=== PATIENT | female | born 1960 | race Caucasian/White ===

== ENCOUNTER 2017-08-22 12:28 | Outpatient (CLI) | payer OTHER ==
--- OUTSIDE RECORDS SUMMARY | 2017-08-27 06:23 | XMS | Clinical Summary ---
:1960 Author Organization [facility] Address [address] [place] [address] Phone Care Team Providers Name Role Phone , Primary Care Provider Unavailable Allergies Not on File Current Medications Not on file Active Problems Not on file Social History Tobacco Use Types Packs/Day Years Used Date Never Assessed Sex Assigned at Date Recorded Not on file Last Filed Vital Signs Not on file Plan of Treatment Not on file Results Not on filefrom Last 3 Months
== END 2017-08-22 12:29 | disposition home or self-care (01) ==
LOC: LABBT 12:28
PROVIDERS: ATTEND Family Medicine
DX: Z01.818 Encounter for other preprocedural examination (principal); E66.09 Other obesity due to excess calories

== ENCOUNTER 2017-08-22 13:00 | Inpatient (IN) | payer OTHER ==
[2017-08-28] MEDS ORDERED: Bupivacaine 0.25% HCL 30 ML VIAL ONE ×2 (06:41→06:47)
[2017-08-28] MEDS ORDERED: Sodium Chloride 0.9% 100 ML ONE (06:57)
[2017-08-28] MEDS ORDERED: Scopolamine 1.5 mg/72 hour Patch ONE (06:57)
[2017-08-28] MEDS ORDERED: Ketorolac Tromethamine 30 MG/ML VIAL ONE (06:57)
[2017-08-28] MEDS ORDERED: Heparin 5,000 UNITS/ML VIAL ONE (06:57)
[2017-08-28] MEDS ORDERED: Fentanyl 250 MCG/5 ML VIAL ONE (07:03)
[2017-08-28] MEDS ORDERED: Lidocaine 2% w/Epinephrine 1:200K 20 ML VIAL ONE (07:37)
[2017-08-28] MEDS ORDERED: Glycopyrrolate 0.2 MG/ML 5 ML SYRINGE ONE (07:37)
[2017-08-28] MEDS ORDERED: Ondansetron HCl/PF 4 MG/2 ML Vial ONE (07:37)
[2017-08-28] MEDS ORDERED: Lidocaine 1% PF 5 ML VIAL ONE (07:37)
[2017-08-28] MEDS ORDERED: Propofol 200 MG/20 ML VIAL ONE (07:37)
[2017-08-28] MEDS ORDERED: HYDROmorphone 2 MG/ML VIAL SLOW IVP PRN (09:56)
[2017-08-28] MEDS ORDERED: Promethazine HCl 25 MG/ML VIAL SLOW IVP PRN (09:56)
[2017-08-28] MEDS ORDERED: Promethazine HCl 25 MG/ML VIAL IM PRN ×2 (09:56→11:44)
[2017-08-28] MEDS ORDERED: Ondansetron HCl/PF 4 MG/2 ML Vial IVP PRN ×2 (09:56→11:44)
[2017-08-28] MEDS ORDERED: Fentanyl 100 MCG/2 ML VIAL ONE ×3 (09:57→10:35)
[2017-08-28] MEDS ORDERED: Promethazine HCl 25 MG/ML VIAL ONE (10:09)
[2017-08-28] MEDS ORDERED: Dextrose 50% Abboject 50 ML SYRINGE SLOW IVP PRN (11:44)
[2017-08-28] MEDS ORDERED: Insulin Regular 300 UNITS/3 ML VIAL SC PRN (11:44)
[2017-08-28] MEDS ORDERED: hydrALAZINE 20 MG/ML VIAL SLOW IVP PRN (11:44)
[2017-08-28] MEDS ORDERED: diphenhydrAMINE 50 MG/ML VIAL IVP PRN (11:44)
[2017-08-28] MEDS ORDERED: Hydrocodone-Acetamin 15 ML UDCUP PO PRN (11:44)
[2017-08-28] MEDS ORDERED: Dextrose 5% in Water 1,000 ML IV PRN (11:44)
[2017-08-28] MEDS ORDERED: Morphine 2 MG/ML SYRINGE SLOW IVP PRN (11:44)
[2017-08-28] MEDS: 1/2 NS w/KCL 20 mEq 1,000 ML IV SCH ×2 (13:22→20:25)
[2017-08-28] MEDS: Ketorolac Tromethamine 30 MG/ML VIAL IVP SCH ×3 (13:23→23:34)
[2017-08-28] MEDS: Meperidine HCl/PF 25 MG/ML VIAL SLOW IVP PRN ×3 (14:06→21:02)
--- OUTSIDE RECORDS SUMMARY | 2017-08-29 00:30 | XMS | Clinical Summary ---
:1960 Author Organization [facility] Address [address] [place] [address] Phone Care Team Providers Name Role Phone [...]
[2017-08-29] MEDS: Meperidine HCl/PF 25 MG/ML VIAL SLOW IVP PRN (04:30)
[2017-08-29] MEDS: 1/2 NS w/KCL 20 mEq 1,000 ML IV SCH ×2 (04:36→13:23)
[2017-08-29 05:42] LABS: #Lymphocytes 2.4 thou/uL (1.20-3.40); #Monocytes 1.1 thou/uL (0.11-0.59); #Neutrophils 6.4 thou/uL (1.40-6.50); %Basophils 0.5 % (0.0-1.0); %Eosinophils 0.2 % (0.0-10.0); %Monocytes 10.7 % (0.0-10.0); Hematocrit 38.6 % (36.0-47.0); Mean Platelet Volume 8.4 fL (7.4-10.4); Red Blood Cell (RBC) Count 4.34 mill/uL (4.20-5.40); White Blood Cell (WBC) Count 9.9 thou/uL (4.8-10.8)
[2017-08-29 05:47] LABS: Anion Gap 12 mmol/L (10-20); BUN (Urea Nitrogen) 7 mg/dL (9.8-20.1); Calc. Creatinine Clearance 146 mL/min (70-130); Calcium 8.1 mg/dL (7.8-10.44); Carbon Dioxide 23 mmol/L (22-29); Chloride 106 mmol/L (98-107); Estimated GFR-MDRD Greater than 90
[2017-08-29] MEDS: Ketorolac Tromethamine 30 MG/ML VIAL IVP SCH ×2 (06:22→13:24)
[2017-08-29] MEDS ORDERED: Pantoprazole 40 MG VIAL IVP SCH (09:00)
--- NOTE | 2017-08-29 10:15 | RAD ---
LIMITED UPPER GI WITH 15 ML GASTROGRAFIN: Date: 08/29/17 HISTORY: Recent gastric bypass surgery. FINDINGS: There is prompt passage of contrast to the esophagus and into the small bowel loops. No contrast ext ravasation is seen. IMPRESSION: No evidence of obstruction or leak. POS: [facility]
[2017-08-29 15:03] VITALS: BMI 34.0
[2017-08-29 15:12] VITALS: BP 148/79; TEMP 98.9
--- NOTE | 2017-08-29 17:30 | OP ---
DATE OF PROCEDURE: 08/28/2017 PREOPERATIVE DIAGNOSIS: Morbid obesity with multiple comorbidities. POSTOPERATIVE DIAGNOSIS: Morbid obesity with multiple comorbidities. OPERATION PERFORMED: Laparoscopic Viet-en-Y gastric bypass. SURGEON: Kush Inman M.D. ANESTHESIA: General endotracheal. INDICATIONS: The patient is a 56-year-old morbidly obese white female. She has undergone preoperat monica evaluation and education and presents at this time for laparoscopic gastric bypass. DESCRIPTION OF THE PROCEDURE: Informed consent was obtained. The patient was taken to the operatin g room where general endotracheal anesthesia was obtained with the patient in supine position. Abdo men was prepped with ChloraPrep and draped in sterile fashion. Local anesthetic was infiltrated and a 5 mm supraumbilical incision was created through which a Veress needle was passed into the perito maria alejandra cavity. Pneumoperitoneum was established using carbon dioxide up to a pressure of 15 mmHg. A 5 mm trocar port was passed through this same incision. Laparoscopic camera was passed through this port. Under direct vision, 4 additional ports were placed including bilateral subcostal 5 mm ports , 15 mm left paramedian port and a 12 mm right paramedian port. Later in the case, made a 5 mm epig astric incision through which I placed a Nathansen retractor to retract the left lobe of the liver. The omentum was reflected superiorly. There were no adhesions. This was split in the midline up to the transverse colon using LigaSure device. The ligament of Treitz was identified and traced 50 cm distally at which point it was transected with a single firing of the white load of the [place] sta pler. The distal segment of bowel was devascularized for 5 cm. I traced the small bowel 100 cm dis tally and at that point, created an anastomosis between the stapled end of the biliary limb and the Viet limb using a single fire of the white load of the [place] stapler. The enterotomy was closed w ith another firing of the white load of the [place] stapler. The mesenteric defect was closed using 2 interrupted sutures of 3-0 Vicryl placed in a [id number] fashion. The devascularized segment was reflected into the upper abdomen and the patient was placed in revers e Trendelenburg position. Attention was turned to the stomach. The angle of His was carefully diss ected. There was no evidence of a hiatal hernia. The lesser curve was dissected about 5 cm from th e gastroesophageal junction, and entry was gained through the lesser curvature into the lesser sac. A single load of the [place] stapler using a blue load was fired transversely across the stomach at this level. An enterotomy was created on the distal stomach and anvil from the 25 mm EEA stapler w as passed through the gastrotomy into the upper pouch and brought out just proximal to the staple li ne using the 5 mm band passer. Gastrotomy was then closed using another fire of the blue stapler. The pouch was then completed using a couple fires of the blue load of the stapler up to the angle of His. An enterotomy was created in the devascularized segment of the small bowel and the EEA stapler was a dvanced into the small bowel several centimeters. The spike was advanced through the small bowel un linda vision and connected to the anvil in the upper gastric pouch. These two segments were approxima merari and then anastomosed by firing the stapler. The stapler was removed and the donuts were inspect ed and found to be intact. The devascularized segment of small bowel was then resected with a final firing of the [place] stapler. The anastomosis was buttressed with 3 interrupted sutures of 3-0 Vi cryl. Nasogastric tube was passed through the anastomosis and the anastomosis was inspected by insu fflating while under water with finding of no air leak. The area was thoroughly irrigated and all irrigant was aspirated. The fascial defects at the 12 and 15 mm port sites were closed with 0 Vicryl suture using a GraNee needle. All ports and instruments were removed under direct vision. Pneumoperitoneum was carefully evacuated. Quarter percent Sanju ine with epinephrine was infiltrated in each port site. Skin edges approximated with 4-0 Monocryl. Subcuticular suture and Dermabond was placed externally. There were no complications. The patient tolerated the procedure well and was taken to recovery room in stable condition.
== END 2017-08-29 14:50 | disposition home or self-care (01) | DRG 621 ==
LOC: SURG A 08-28 06:02 → SURG B 08-28 11:35
PROVIDERS: ADMIT Specialist; ATTEND Specialist
PROC: 0D164Z9 Bypass Stomach to Duodenum, Percutaneous Endoscopic Approach (ICD-10-PCS; principal; 2017-08-28)
DX: E66.01 Morbid (severe) obesity due to excess calories (principal); F32.9 Major depressive disorder, single episode, unspecified; Z68.34 Body mass index [BMI] 34.0-34.9, adult; E11.9 Type 2 diabetes mellitus without complications; Z79.84 Long term (current) use of oral hypoglycemic drugs; E03.9 Hypothyroidism, unspecified; Z79.890 Hormone replacement therapy; K21.9 Gastro-esophageal reflux disease without esophagitis; M19.90 Unspecified osteoarthritis, unspecified site
CPT/HCPCS: 36415; 36416; 74241; 80048; 85025; C9113; J0131; J0694; J1170; J1644; J1885; J2001; J2175; J2405; J2550; J2704; J3010; J7050; S0020

== ENCOUNTER 2017-12-12 09:43 | Outpatient (CLI) | payer OTHER ==
--- NOTE | 2017-12-12 13:32 | RAD ---
LIMITED UPPER GI: 12/12/2017 HISTORY: Evaluate bariatric surgery status. The patient is post gastric bypass and has had persistent nausea since surgery. FLUOROSCOPY: Total fluoroscopy time is 1 minute, with a total dose of 56.61 mGy. FINDINGS: Gastrografin 15 mL was initially administered. Contrast traverses the GE junction freely and without holdup. Contrast extends into the gastric pouch and promptly into the small bowel without holdup. There is no extravasation of contrast to suggest a leak. As a result, a small amount of thin liquid barium was then administered and, again, the thin liquid barium traversed the GE junction freely and without holdup and, again, it extends into the small bowel. IMPRESSION: Post surgical changes related to gastric bypass procedure. There are no findings to suggest obstruct ion at the level of the gastroesophageal junction, and contrast readily extends into the small bowel. POS: [facility]
== END 2017-12-12 09:44 | disposition home or self-care (01) ==
LOC: RAD 09:43
PROVIDERS: ATTEND Specialist
DX: Z48.815 Encounter for surgical aftercare following surgery on the digestive system (principal); Z98.84 Bariatric surgery status
CPT/HCPCS: 74247

== ENCOUNTER 2017-12-15 08:39 | Outpatient (CLI) | payer OTHER ==
--- NOTE | 2017-12-15 13:40 | NM ---
HEPATOBILIARY SCAN: Date: 12/15/17 HISTORY: Status post bariatric surgery/gastric bypass. Persistent nausea since surgery. RADIOPHARMACEUTICAL: 5.1 mCi technetium-99m mebrofenin injected intravenously. FINDINGS: There is good tracer extraction by the liver with prompt excretion into the biliary tract and small b owel loops, and normal filling of the gallbladder. The calculated gallbladder ejection fraction follo wing an oral fatty meal is 15%. IMPRESSION: Gallbladder dyskinesia/chronic cholecystitis. POS: [facility]
== END 2017-12-15 08:40 | disposition home or self-care (01) ==
LOC: RAD 08:39
PROVIDERS: ATTEND Specialist
DX: Z48.815 Encounter for surgical aftercare following surgery on the digestive system (principal); Z98.84 Bariatric surgery status
CPT/HCPCS: 78227; A9537

== ENCOUNTER 2020-08-28 19:30 | Outpatient (CLI) | payer OTHER | END 2020-08-28 19:31 | disposition home or self-care (01) | LOC: SLEEPLAB 19:30 | PROVIDERS: ATTEND Internal Medicine Critical Care Medicine | DX: G47.33 Obstructive sleep apnea (adult) (pediatric) (principal); R53.83 Other fatigue; R06.83 Snoring; G47.00 Insomnia, unspecified; G47.10 Hypersomnia, unspecified; E11.9 Type 2 diabetes mellitus without complications; F32.9 Major depressive disorder, single episode, unspecified | CPT/HCPCS: 95810 ==

== ENCOUNTER 2020-09-21 19:00 | Outpatient (CLI) | payer OTHER | END 2020-09-21 19:01 | disposition home or self-care (01) | LOC: SLEEPLAB 19:00 | PROVIDERS: ATTEND Internal Medicine Critical Care Medicine | DX: G47.33 Obstructive sleep apnea (adult) (pediatric) (principal); R53.83 Other fatigue | CPT/HCPCS: 95811 ==

== ENCOUNTER 2023-02-25 12:33 | Outpatient (CLI) | payer OTHER | END 2023-02-25 12:34 | disposition home or self-care (01) | LOC: BICMRI 12:33 | PROVIDERS: ATTEND Obstetrics & Gynecology | DX: R92.2 Inconclusive mammogram (principal) | CPT/HCPCS: A9577; C8908 ==

== ENCOUNTER 2023-07-02 10:20 | Outpatient (CLI) | payer OTHER ==
[2023-07-02 12:40] LABS: #Basophils 0.1 10x3/uL (0.0-0.2); #Eosinphils 0.1 10x3/uL (0.0-0.5); #Monocytes 0.8 10x3/uL (0.0-1.1); #Neutrophils 4.9 10x3/uL (1.5-8.4); %Basophils 0.9 % (0.0-2.0); %Eosinophils 1.6 % (0.0-6.0); %Lymphocytes 31.3 % (18.0-47.0); Hematocrit 38.9 % (34.9-44.5); Mean Corpuscular HGB CONC 30.8 g/dL (32.0-36.0); Mean Corpuscular Volume 87.4 fl (81.6-98.3); Mean Platelet Volume 11.1 fl (7.4-10.4); Platelet Count 381 10x3/uL (150-450); RBC Distribution Width 15.5 % (11.5-14.5); Red Blood Cell (RBC) Count 4.45 10x6/uL (3.90-5.03); White Blood Cell (WBC) Count 8.7 10x3/uL (3.5-10.5)
[2023-07-02 13:17] LABS: Anion Gap 16 mmol/L (10-20); BUN (Urea Nitrogen) 17 mg/dL (9.8-20.1); Calc. Creatinine Clearance 0 mL/min (70-130); Calcium 10.1 mg/dL (7.8-10.44); Carbon Dioxide 27 mmol/L (23-31); Chloride 104 mmol/L (98-107); Estimated GFR 94; Glucose 96 mg/dL (80-115); Potassium 5.6 mmol/L (3.5-5.1); Sodium 141 mmol/L (136-145)
== END 2023-07-02 10:21 | disposition home or self-care (01) ==
LOC: LABBT 10:20
PROVIDERS: ATTEND Specialist
DX: Z01.818 Encounter for other preprocedural examination (principal); C50.911 Malignant neoplasm of unspecified site of right female breast
CPT/HCPCS: 71046; 80048; 85025; 93005

== ENCOUNTER → 2023-07-04 | Day surgery (SDC) | payer OTHER ==
[2023-07-02 10:59] VITALS: BMI 22.2
[~2023-07-04] MED LIST: Bupivacaine 0.25% HCL 30 ML VIAL ONE; CEFAZOLIN 2 GM VIAL ONE; Dexamethasone 20 MG/5 ML VIAL ONE; EPINEPHrine 1 MG/ML AMP ONE; Fentanyl 250 MCG/5 ML VIAL ONE; Gentamicin 80 MG/2 ML VIAL ONE; HYDROmorphone 2 MG/ML VIAL ONE; Heparin 5,000 UNITS/ML VIAL ONE; Ketorolac Tromethamine 30 MG/ML VIAL ONE; Lidocaine 1% PF 5 ML VIAL ONE; Midazolam HCl 2 mg/2 ml Vial ONE; Ondansetron PF 4 MG/2 ML Vial ONE; PHENYLEPHRINE-NS 100 MCG/ML 10 ML SYRINGE ONE; PROPOFOL 200 MG/20 ML VIAL ONE; Sodium Chloride 0.9% 100 ML ONE; Vancomycin 1 GM VIAL ONE; Vasopressin 20 UNITS/ML VIAL ONE; fentaNYL 50 mcg/mL 1 mL Vial ONE; fentaNYL PF 100 MCG/2 ML SYRINGE ONE
[2023-07-04 12:08] LABS: Potassium 4.1 mmol/L (3.5-5.1)
== END ==
LOC: SDC 10:25
PROVIDERS: ATTEND Specialist
PROC: 0HTT0ZZ Resection of Right Breast, Open Approach (ICD-10-PCS; principal; 2023-07-04)
PROC: 0HQT0ZZ Repair Right Breast, Open Approach (ICD-10-PCS; principal; 2023-07-04)
DX: C50.311 Malignant neoplasm of lower-inner quadrant of right female breast (principal); N60.31 Fibrosclerosis of right breast; N64.81 Ptosis of breast; Z17.1 Estrogen receptor negative status [ER-]; E11.9 Type 2 diabetes mellitus without complications; D64.9 Anemia, unspecified; Z90.710 Acquired absence of both cervix and uterus; Z98.84 Bariatric surgery status
CPT/HCPCS: 84132; 88309; C1713; J0171; J1100; J1170; J1580; J1644; J1885; J2250; J2405; J2704; J3010; J3370; J3490; S0020

== ENCOUNTER 2023-10-02 13:02 | Outpatient (CLI) | payer OTHER ==
[2023-10-02 15:22] LABS: Anion Gap 12 mmol/L (10-20); BUN (Urea Nitrogen) 15 mg/dL (9.8-20.1); Calc. Creatinine Clearance 0 mL/min (70-130); Calcium 9.4 mg/dL (7.8-10.44); Carbon Dioxide 27 mmol/L (23-31); Chloride 103 mmol/L (98-107); Estimated GFR 99; Glucose 153 mg/dL (80-115); Potassium 4.3 mmol/L (3.5-5.1); Sodium 138 mmol/L (136-145)
== END 2023-10-02 13:03 | disposition home or self-care (01) ==
LOC: LABBT 13:02
PROVIDERS: ATTEND Plastic Surgery
DX: Z01.818 Encounter for other preprocedural examination (principal)
CPT/HCPCS: 80048; 93005; 93010

== ENCOUNTER 2023-10-03 10:00 | Day surgery (SDC) | payer OTHER ==
[2023-10-01 14:25] VITALS: BMI 22.2
[2023-10-03] MEDS ORDERED: Gentamicin 80 MG/2 ML VIAL ONE (11:44)
[2023-10-03] MEDS ORDERED: Vancomycin 1 GM VIAL ONE (11:45)
[2023-10-03] MEDS ORDERED: Bupivacaine 0.25% HCL 30 ML VIAL ONE ×2 (11:45→12:39)
[2023-10-03] MEDS ORDERED: EPINEPHrine 1 MG/ML VIAL ONE (11:45)
[2023-10-03] MEDS ORDERED: Lidocaine 1% (PF) 30 ML VIAL ONE (12:00)
[2023-10-03] MEDS ORDERED: PROPOFOL 20 ML ONE (12:01)
[2023-10-03] MEDS ORDERED: PHENYLEPHRINE-NS 100 MCG/ML 10 ML SYRINGE ONE ×3 (12:01→14:15)
[2023-10-03] MEDS ORDERED: Lidocaine 1% PF 5 ML VIAL ONE ×2 (12:01→12:29)
[2023-10-03] MEDS ORDERED: Dexamethasone 20 MG/5 ML VIAL ONE ×2 (12:01→12:29)
[2023-10-03] MEDS ORDERED: Ondansetron PF 4 MG/2 ML Vial ONE ×2 (12:01→12:29)
[2023-10-03] MEDS ORDERED: ePHEDrine Sulfate 50 MG/10 ML VIAL ONE ×3 (12:02→12:29)
[2023-10-03] MEDS ORDERED: Heparin 5,000 UNITS/ML VIAL ONE (12:14)
[2023-10-03] MEDS ORDERED: Midazolam HCl 2 mg/2 ml Vial ONE (12:14)
[2023-10-03] MEDS ORDERED: Sodium Chloride 0.9% 100 ML ONE (12:18)
[2023-10-03] MEDS ORDERED: CEFAZOLIN 2 GM VIAL ONE (12:18)
[2023-10-03] MEDS ORDERED: PROPOFOL 200 MG/20 ML VIAL ONE (12:29)
[2023-10-03] MEDS ORDERED: fentaNYL PF 100 MCG/2 ML SYRINGE ONE (12:34)
[2023-10-03] MEDS ORDERED: Esmolol 100 MG/10 ML VIAL ONE (13:34)
[2023-10-03] MEDS ORDERED: fentaNYL 50 mcg/mL 1 mL Vial ONE ×3 (13:37→14:41)
[2023-10-03] MEDS ORDERED: HYDROcodone/Acetaminophen 5/325 mg Tablet ONE (16:23)
== END 2023-10-03 17:15 | disposition home or self-care (01) ==
LOC: SDC 10:00
PROVIDERS: ATTEND Plastic Surgery
PROC: 0HUT07Z Supplement Right Breast with Autologous Tissue Substitute, Open Approach (ICD-10-PCS; principal; 2023-10-03)
DX: C50.311 Malignant neoplasm of lower-inner quadrant of right female breast (principal); E11.9 Type 2 diabetes mellitus without complications; E07.9 Disorder of thyroid, unspecified; D64.9 Anemia, unspecified; Z98.84 Bariatric surgery status; Z90.710 Acquired absence of both cervix and uterus; Z88.5 Allergy status to narcotic agent; Z88.2 Allergy status to sulfonamides; Z88.1 Allergy status to other antibiotic agents
CPT/HCPCS: C1789; J0171; J1100; J1580; J1644; J2001; J2250; J2405; J2704; J3010; J3370; J3490; S0020